=== PATIENT | male | born 1945 | race Caucasian/White ===

== ENCOUNTER → 2021-10-24 | Outpatient (CLI) | payer OTHER, MEDICAID ==
[~2021-10-24] MED LIST: ATEN50TA2 PO; FISH500C PO; GEMF600T5 PO; HYDR-2541 PO; MULT1TAB9 PO
== END ==
LOC: M RAD 10:56
PROVIDERS: ATTEND Internal Medicine
DX: N18.9 Chronic kidney disease, unspecified (principal); N40.0 Benign prostatic hyperplasia without lower urinary tract symptoms; N28.1 Cyst of kidney, acquired; N32.3 Diverticulum of bladder

== ENCOUNTER → 2024-02-11 | Outpatient (CLI) | payer OTHER, MEDICAID | LOC: M RAD 11:05 | PROVIDERS: ATTEND Specialist | DX: N28.1 Cyst of kidney, acquired (principal); N32.3 Diverticulum of bladder ==

== ENCOUNTER → 2024-09-28 | Outpatient (CLI) | payer OTHER, MEDICAID ==
[~2024-09-28] MED LIST changes: +LIDOCAINE 1% MDV 20ML VIAL As Ordered ONE
[2024-09-28 10:20] VITALS: BP 142/97; TEMP 96.6; O2SAT 97
== END ==
LOC: M IRPRO 10:06
PROVIDERS: ATTEND Otolaryngology
DX: D37.030 Neoplasm of uncertain behavior of the parotid salivary glands (principal)

== ENCOUNTER 2024-11-04 11:56 | Inpatient (IN) | payer OTHER, MEDICAID ==
[~2024-11-04] VITALS: Ht 167.6 cm; Wt 90.9 kg
[~2024-11-04 11:56] MED LIST changes: -LIDOCAINE 1% MDV 20ML VIAL As Ordered ONE
[2024-11-04 12:55] LABS: BASO % 0.4 % (0.0-1.0); EOS # 0.1 10^3/uL (0.0-0.5); EOS % 0.5 % (0.0-3.0); HEMATOCRIT 41.2 % (42.0-52.0); HEMOGLOBIN 14.4 g/dl (13.5-17.5); LYMPH # 1.5 10^3/uL (1.5-5.0); LYMPH % 15.1 % (24.0-44.0); MEAN CORPUSCULAR VOLUME 88.8 fl (80.0-96.0); MONO # 0.8 10^3/uL (0.0-0.8); MONO % 8.4 % (2.0-8.0); NEUTROPHILS # 7.5 10^3/uL (1.5-8.5); NEUTROPHILS % 75.1 % (36.0-66.0); PLATELET COUNT, AUTOMATED 236 10^3/uL (150-450); RED BLOOD COUNT 4.64 10^6/uL (4.30-6.10)
[2024-11-04] MEDS ORDERED: LIDOCAINE 2% 5ML JELLY UROJET As Ordered ONE (13:08)
[2024-11-04] MEDS: LIDOCAINE 2% 5ML JELLY UROJET TOP ONE (13:12)
[2024-11-04 13:14] LABS: INR 1.02; PARTIAL THROMBOPLASTIN TIME 27.2 SECONDS (24.8-34.2); PROTHROMBIN TIME 13.7 SECONDS (12.5-14.5)
[2024-11-04 13:24] LABS: BILIRUBIN,DIRECT 0.4 MG/DL (<0.4); BILIRUBIN,TOTAL 1.2 MG/DL (0.3-1.2); CALCIUM LEVEL 9.5 MG/DL (8.3-10.6); CREATININE FOR GFR 1.28 MG/DL (0.70-1.30); GLOMERULAR FILTRATION RATE 57.9 (>42); POTASSIUM SERUM 4.1 MMOL/L (3.5-5.1); TOTAL PROTEIN 7.4 G/DL (5.7-8.2)
[2024-11-04] MEDS ORDERED: ISOVUE-370 76% 100ML VIAL As Ordered ONE (13:26)
[2024-11-04 13:38] LABS: KETONE, URINE AUTO RFX TRACE mg/dL (NEGATIVE); LEUKOCYTE ESTERASE UR AUTO RFX NEGATIVE (NEGATIVE); MUCUS, URINE RFX SMALL (NEGATIVE); NITRITE, URINE AUTO RFX NEGATIVE (NEGATIVE); RBC, URINE AUTO RFX 10 /HPF (0-3); SQUAM EPITHELIAL CELL UR AURFX 1 /HPF (0-6); WBC, URINE AUTO RFX 3 /HPF (0-3)
[2024-11-04] MEDS: ACETAMINOPHEN *IV* 1,000 MG in IV 1 EA IV ONE (14:31)
[2024-11-04] MEDS ORDERED: MORPHINE 2 MG/ML 1ML VIAL IV PRN (15:55)
[2024-11-04] MEDS ORDERED: LISI2.5T9 PO (17:50)
[2024-11-04] MEDS ORDERED: THERTAB52 PO (17:50)
[2024-11-04] MEDS ORDERED: VASC1CAP2 PO (17:50)
[2024-11-04] MEDS ORDERED: METO1TAB33 PO (17:50)
[2024-11-04] MEDS ORDERED: HOME MED LIST COMPLETE! XX SCH (17:55)
[2024-11-04 19:30] LABS: VENOUS BASE EXCESS -3.8 (-2.0-2.0); VENOUS HCO3 21.2 MMOL/L (23.0-27.0); VENOUS O2 SATURATION 86.2 % (60.0-80.0); VENOUS PARTIAL PRESSURE CO2 38.4 mmHg (38.0-50.0); VENOUS PARTIAL PRESSURE O2 52.1 mmHg (30.0-50.0); VENOUS PH 7.359 UNITS (7.330-7.430); VENOUS STANDARD HCO3 21.1 MMOL/L; VENOUS TOTAL CO2 22.3 MMOL/L (24.0-28.0)
[2024-11-04 19:33] LABS: HEMATOCRIT 45.8 % (42.0-52.0); HEMOGLOBIN 15.5 g/dl (13.5-17.5); MEAN CORPUSCULAR HEMOGLOBIN 30.3 pg (27.0-33.0); MEAN CORPUSCULAR HGB CONC 33.8 g/dl (32.0-36.5); MEAN CORPUSCULAR VOLUME 89.6 fl (80.0-96.0); PLATELET COUNT, AUTOMATED 227 10^3/uL (150-450); RED BLOOD COUNT 5.11 10^6/uL (4.30-6.10); WHITE BLOOD COUNT 10.3 10^3/uL (4.0-10.0)
[2024-11-04 20:02] LABS: C REACTIVE PROTEIN QUANTITATIV 0.69 MG/DL (<1.0); CHOLESTEROL RISK RATIO 4.67 (<5); HDL CHOLESTEROL 45.1 MG/DL (>40); HEMOGLOBIN A1c 5.3 % (4.0-6.0); LDL CHOLESTEROL 146.1 MG/DL (<100); NON-HDL-C 165.9 MG/DL
[2024-11-04 20:08] LABS: PROCALCITONIN 0.08 ng/ml
[2024-11-04] MEDS: METOPROLOL SUCC (TopROL XL) 100MG *XL* TAB PO SCH (20:39)
[2024-11-04] MEDS: ASPIRIN 81MG CHEW TABLET PO ONE (20:40)
[2024-11-04 22:04] VITALS: TEMP 98.6; O2SAT 98
[2024-11-05 00:54] LABS: HEMOGLOBIN 14.7 g/dl (13.5-17.5); MEAN CORPUSCULAR HEMOGLOBIN 30.9 pg (27.0-33.0); MEAN CORPUSCULAR VOLUME 88.4 fl (80.0-96.0); PLATELET COUNT, AUTOMATED 236 10^3/uL (150-450); RED BLOOD COUNT 4.75 10^6/uL (4.30-6.10); WHITE BLOOD COUNT 9.7 10^3/uL (4.0-10.0)
[2024-11-05 03:00] VITALS: BP 154/81; TEMP 98.4; O2SAT 92
[2024-11-05 06:07] LABS: HEMATOCRIT 42.7 % (42.0-52.0); HEMOGLOBIN 14.8 g/dl (13.5-17.5); MEAN CORPUSCULAR HEMOGLOBIN 30.4 pg (27.0-33.0); MEAN CORPUSCULAR HGB CONC 34.7 g/dl (32.0-36.5); MEAN CORPUSCULAR VOLUME 87.7 fl (80.0-96.0); PLATELET COUNT, AUTOMATED 241 10^3/uL (150-450); RED BLOOD COUNT 4.87 10^6/uL (4.30-6.10); WHITE BLOOD COUNT 9.7 10^3/uL (4.0-10.0)
[2024-11-05 06:31] LABS: ALBUMIN 3.8 G/DL (3.2-5.2); ALKALINE PHOSPHATASE 59 U/L (40-129); ALT/SGPT 44 U/L (7.0-40); AST/SGOT 61 U/L (<34); BILIRUBIN,TOTAL 1.2 MG/DL (0.3-1.2); BLOOD UREA NITROGEN 23 MG/DL (9-23); CALCIUM LEVEL 9.4 MG/DL (8.3-10.6); CARBON DIOXIDE LEVEL 22 MMOL/L (20-31); CHLORIDE LEVEL 97 MMOL/L (98-107); CREATININE FOR GFR 1.21 MG/DL (0.70-1.30); GLOMERULAR FILTRATION RATE > 60.0 (>42); GLUCOSE, FASTING 105 MG/DL (74-106); MAGNESIUM LEVEL 2.1 MG/DL (1.8-2.4); POTASSIUM SERUM 4.2 MMOL/L (3.5-5.1); SODIUM LEVEL 134 MMOL/L (136-145); TOTAL PROTEIN 7.3 G/DL (5.7-8.2)
[2024-11-05 08:07] VITALS: BP 145/82; TEMP 97.7; O2SAT 90
[2024-11-05] MEDS: LISINOPRIL *2.5 MG* TAB PO SCH (08:18)
[2024-11-05] MEDS: ASPIRIN 81MG CHEW TABLET PO SCH (08:19)
[2024-11-05] MEDS: ATORVASTATIN 20 MG TAB PO SCH (08:19)
[2024-11-05] MEDS: ENOXAPARIN 40MG/0.4ML SYRINGE (J1650 PER 10MG) SC SCH (08:19)
[2024-11-05] MEDS: NYSTATIN 100,000 UNITS/GM TOPICAL PWD 15GM TOP SCH (09:00)
[2024-11-05 10:04] LABS: THYROID STIMULATING HORMONE 0.701 uIU/ML (0.55-4.78)
[2024-11-05 10:05] LABS: FREE T4 1.26 NG/DL (0.89-1.76); THYROID PEROXIDASE ANTIBODY < 28.0 U/ML (<60.0)
[2024-11-05] MEDS: methylPREDNISolone 125MG 2ML VIAL IV SCH (10:59)
[2024-11-05 11:59] VITALS: BP 128/77; TEMP 98.1; O2SAT 97
[2024-11-05] MEDS ORDERED: PROHANCE 279.3MG/ML 5ML VIAL As Ordered ONE (12:46)
[2024-11-05] MEDS ORDERED: PROHANCE 279.3MG/ML 15ML VIAL As Ordered ONE (12:46)
[2024-11-05 15:21] LABS: HEMATOCRIT 42.3 % (42.0-52.0); HEMOGLOBIN 14.8 g/dl (13.5-17.5); MEAN CORPUSCULAR HEMOGLOBIN 30.9 pg (27.0-33.0); MEAN CORPUSCULAR VOLUME 88.3 fl (80.0-96.0); PLATELET COUNT, AUTOMATED 245 10^3/uL (150-450); RED BLOOD COUNT 4.79 10^6/uL (4.30-6.10); WHITE BLOOD COUNT 9.2 10^3/uL (4.0-10.0)
[2024-11-05 15:34] LABS: ERYTHROCYTE SEDIMENTATION RATE 36 mm/hr (0-20)
[2024-11-05 20:00] VITALS: BP 114/71; TEMP 97.3; O2SAT 94
[2024-11-05] MEDS: QUEtiapine FUMARATE 25 MG TAB PO SCH (20:25)
[2024-11-05 20:50] LABS: HEMATOCRIT 40.4 % (42.0-52.0); MEAN CORPUSCULAR HEMOGLOBIN 30.4 pg (27.0-33.0); MEAN CORPUSCULAR HGB CONC 34.7 g/dl (32.0-36.5); MEAN CORPUSCULAR VOLUME 87.6 fl (80.0-96.0); PLATELET COUNT, AUTOMATED 252 10^3/uL (150-450); RED BLOOD COUNT 4.61 10^6/uL (4.30-6.10); WHITE BLOOD COUNT 6.9 10^3/uL (4.0-10.0)
[2024-11-06 00:54] LABS: HEMATOCRIT 39.8 % (42.0-52.0); HEMOGLOBIN 13.6 g/dl (13.5-17.5); MEAN CORPUSCULAR HEMOGLOBIN 30.2 pg (27.0-33.0); MEAN CORPUSCULAR HGB CONC 34.2 g/dl (32.0-36.5); MEAN CORPUSCULAR VOLUME 88.4 fl (80.0-96.0); PLATELET COUNT, AUTOMATED 253 10^3/uL (150-450)
[2024-11-06 04:06] VITALS: BP 107/64; TEMP 97.7; O2SAT 95
[2024-11-06] MEDS: NS 500 ML IV ONE (05:03)
[2024-11-06 06:01] VITALS: BP 124/66
[2024-11-06 06:31] LABS: HEMATOCRIT 40.6 % (42.0-52.0); MEAN CORPUSCULAR HEMOGLOBIN 31.1 pg (27.0-33.0); MEAN CORPUSCULAR HGB CONC 34.5 g/dl (32.0-36.5); MEAN CORPUSCULAR VOLUME 90.2 fl (80.0-96.0); PLATELET COUNT, AUTOMATED 239 10^3/uL (150-450); WHITE BLOOD COUNT 11.4 10^3/uL (4.0-10.0)
[2024-11-06 07:06] LABS: ALBUMIN 3.5 G/DL (3.2-5.2); BILIRUBIN,TOTAL 0.9 MG/DL (0.3-1.2); CALCIUM LEVEL 9.3 MG/DL (8.3-10.6); CREATININE FOR GFR 1.74 MG/DL (0.70-1.30); GLOMERULAR FILTRATION RATE 40.6 (>42); MAGNESIUM LEVEL 2.2 MG/DL (1.8-2.4); POTASSIUM SERUM 4.7 MMOL/L (3.5-5.1); TOTAL PROTEIN 6.7 G/DL (5.7-8.2)
[2024-11-06] MEDS: FLUBLOK(EGGFREE) TRIVAL(24-25) VACCINE PF 0.5ML SYRINGE 18YRS & OLDER IM.IMMUN ONE (07:42)
[2024-11-06] MEDS: LR 1,000 ML IV ONE (08:07)
[2024-11-06 10:09] LABS: APPEARANCE, CSF CLEAR (CLEAR); COLOR, CSF COLORLESS (COLORLESS); CSF TUBE# CELL CNT TUBE 1
[2024-11-06 10:10] LABS: APPEARANCE, CSF CLEAR (CLEAR); COLOR, CSF COLORLESS (COLORLESS); CSF TUBE# CELL CNT TUBE 4
[2024-11-06 10:55] LABS: CSF TUBE# TP TUBE 2; TOTAL PROTEIN,CSF 106.2 MG/DL (15-45)
[2024-11-06 10:58] LABS: CSF TUBE# GLU TUBE 2
[2024-11-06 11:55] VITALS: BP 140/77; TEMP 97.7; O2SAT 92; O2SAT 95
[2024-11-06 13:07] LABS: HEMATOCRIT 43.3 % (42.0-52.0); HEMOGLOBIN 14.6 g/dl (13.5-17.5); MEAN CORPUSCULAR HEMOGLOBIN 30.1 pg (27.0-33.0); MEAN CORPUSCULAR HGB CONC 33.7 g/dl (32.0-36.5); MEAN CORPUSCULAR VOLUME 89.3 fl (80.0-96.0); PLATELET COUNT, AUTOMATED 243 10^3/uL (150-450); RED BLOOD COUNT 4.85 10^6/uL (4.30-6.10); WHITE BLOOD COUNT 15.5 10^3/uL (4.0-10.0)
[2024-11-06] MEDS: TAMSULOSIN 0.4 MG CAP PO SCH (14:41)
[2024-11-06] MEDS: HEPARIN SOD (PORCINE) 5000UNITS/ML 1ML VIAL/SYRINGE SQ SCH (14:41)
[2024-11-06] MEDS: MIRALAX *UNIT DOSE* 17GM PACKET PO SCH (14:42)
[2024-11-06] MEDS: METAMUCIL (PSYLLIUM) PACKET PO SCH (14:42)
[2024-11-06 20:22] VITALS: BP 136/73; TEMP 98.8; O2SAT 94
[2024-11-06] MEDS: ACETAMINOPHEN 325 MG TAB PO PRN (21:08)
[2024-11-07 04:01] VITALS: BP 153/88; TEMP 98.4; O2SAT 98
[2024-11-07 07:11] LABS: HEMATOCRIT 41.6 % (42.0-52.0); HEMOGLOBIN 14.2 g/dl (13.5-17.5); MEAN CORPUSCULAR HEMOGLOBIN 30.2 pg (27.0-33.0); MEAN CORPUSCULAR HGB CONC 34.1 g/dl (32.0-36.5); MEAN CORPUSCULAR VOLUME 88.5 fl (80.0-96.0); PLATELET COUNT, AUTOMATED 216 10^3/uL (150-450); WHITE BLOOD COUNT 9.6 10^3/uL (4.0-10.0)
[2024-11-07 07:32] LABS: ALBUMIN 3.7 G/DL (3.2-5.2); BILIRUBIN,TOTAL 0.8 MG/DL (0.3-1.2); CALCIUM LEVEL 8.9 MG/DL (8.3-10.6); CREATININE FOR GFR 1.36 MG/DL (0.70-1.30); POTASSIUM SERUM 4.3 MMOL/L (3.5-5.1); TOTAL PROTEIN 6.9 G/DL (5.7-8.2)
[2024-11-07] MEDS ORDERED: methylPREDNISolone 125MG 2ML VIAL IV ONE (09:05)
[2024-11-07] MEDS: methylPREDNISolone 125MG 2ML VIAL IV SCH (09:22)
[2024-11-07 12:00] VITALS: BP 148/82; TEMP 97.9; O2SAT 93
[2024-11-07 20:19] VITALS: BP 121/71; TEMP 97.9; O2SAT 91
[2024-11-08 04:29] VITALS: BP 143/72; TEMP 98.4; O2SAT 92
[2024-11-08 07:21] LABS: HEMATOCRIT 41.5 % (42.0-52.0); HEMOGLOBIN 14.5 g/dl (13.5-17.5); MEAN CORPUSCULAR HGB CONC 34.9 g/dl (32.0-36.5); MEAN CORPUSCULAR VOLUME 88.9 fl (80.0-96.0); PLATELET COUNT, AUTOMATED 240 10^3/uL (150-450); RED BLOOD COUNT 4.67 10^6/uL (4.30-6.10); WHITE BLOOD COUNT 11.6 10^3/uL (4.0-10.0)
[2024-11-08 07:53] LABS: ALBUMIN 3.6 G/DL (3.2-5.2); BILIRUBIN,TOTAL 0.8 MG/DL (0.3-1.2); CALCIUM LEVEL 9.2 MG/DL (8.3-10.6); CREATININE FOR GFR 1.39 MG/DL (0.70-1.30); GLOMERULAR FILTRATION RATE 52.6 (>42); MAGNESIUM LEVEL 2.2 MG/DL (1.8-2.4); POTASSIUM SERUM 4.7 MMOL/L (3.5-5.1); TOTAL PROTEIN 6.9 G/DL (5.7-8.2)
[2024-11-08] MEDS ORDERED: BISACODYL 10MG SUPP PR PRN (10:35)
[2024-11-08] MEDS: SENOKOT S TAB PO SCH (11:30)
[2024-11-08 12:00] VITALS: BP 116/78; TEMP 97.7; O2SAT 93
[2024-11-08 19:57] VITALS: BP 102/62; TEMP 98.2; O2SAT 91
[2024-11-09 04:28] VITALS: BP 135/77; TEMP 98.6; O2SAT 95
[2024-11-09 06:23] LABS: HEMATOCRIT 41.7 % (42.0-52.0); HEMOGLOBIN 14.4 g/dl (13.5-17.5); MEAN CORPUSCULAR HEMOGLOBIN 30.4 pg (27.0-33.0); MEAN CORPUSCULAR HGB CONC 34.5 g/dl (32.0-36.5); MEAN CORPUSCULAR VOLUME 88.2 fl (80.0-96.0); PLATELET COUNT, AUTOMATED 228 10^3/uL (150-450); RED BLOOD COUNT 4.73 10^6/uL (4.30-6.10); WHITE BLOOD COUNT 11.3 10^3/uL (4.0-10.0)
[2024-11-09 06:53] LABS: ALBUMIN 3.6 G/DL (3.2-5.2); BILIRUBIN,TOTAL 0.7 MG/DL (0.3-1.2); CALCIUM LEVEL 9.6 MG/DL (8.3-10.6); CREATININE FOR GFR 1.47 MG/DL (0.70-1.30); GLOMERULAR FILTRATION RATE 49.3 (>42); MAGNESIUM LEVEL 2.2 MG/DL (1.8-2.4); POTASSIUM SERUM 5.1 MMOL/L (3.5-5.1); TOTAL PROTEIN 6.9 G/DL (5.7-8.2)
[2024-11-09] MEDS ORDERED: VARIBAR NECTAR 40% w/v 240ML SUSP BTL As Ordered ONE (11:06)
[2024-11-09] MEDS ORDERED: VARIBAR PUDDING 40% w/v 230ML TUBE As Ordered ONE (11:06)
[2024-11-09] MEDS ORDERED: E-Z-PAQUE 96% w/w SUSP 176GM BTL As Ordered ONE (11:06)
[2024-11-09] MEDS ORDERED: BARIUM SULFATE 700 MG TABLET (E-Z-DISK) As Ordered ONE (11:06)
[2024-11-09 12:00] VITALS: BP 104/65; TEMP 97.5; O2SAT 96
[2024-11-09 16:57] LABS: LYME TOTAL ANTIBODY CIA <= 0.90 Index (<=0.90)
[2024-11-09 20:05] VITALS: BP 125/70; TEMP 98.4; O2SAT 94
[2024-11-10 00:37] LABS: VITAMIN E(ALPHA TOCOPHEROL) 15.7 mg/L (5.7-19.9); VITAMIN E(GAMMA TOCOPHEROL) < 1.0 mg/L (<=4.3)
[2024-11-10 04:01] VITALS: BP 136/70; TEMP 97.7; O2SAT 95
[2024-11-10 06:46] LABS: HEMATOCRIT 43.1 % (42.0-52.0); MEAN CORPUSCULAR HEMOGLOBIN 30.6 pg (27.0-33.0); MEAN CORPUSCULAR HGB CONC 34.8 g/dl (32.0-36.5); PLATELET COUNT, AUTOMATED 231 10^3/uL (150-450); WHITE BLOOD COUNT 12.8 10^3/uL (4.0-10.0)
[2024-11-10 07:22] LABS: ALBUMIN 3.6 G/DL (3.2-5.2); BILIRUBIN,TOTAL 0.8 MG/DL (0.3-1.2); CALCIUM LEVEL 9.6 MG/DL (8.3-10.6); CREATININE FOR GFR 1.35 MG/DL (0.70-1.30); GLOMERULAR FILTRATION RATE 54.4 (>42); MAGNESIUM LEVEL 2.2 MG/DL (1.8-2.4); TOTAL PROTEIN 6.9 G/DL (5.7-8.2)
[2024-11-10 12:00] VITALS: BP 128/80; TEMP 97.7; O2SAT 93
[2024-11-10 15:13] LABS: Anaplasma phagocytophilum NOT DETECTED (NOT DETECT); Babesia microti NOT DETECTED (NOT DETECT)
[2024-11-10 15:48] LABS: BORRELIA SPECIES DNA NOT DETECTED (NOT DETECT)
[2024-11-10 20:00] VITALS: BP 118/79; TEMP 97.7; O2SAT 95
[2024-11-11 01:52] LABS: Ehrlichia chaffeensis NOT DETECTED (NOT DETECT)
[2024-11-11 04:00] VITALS: BP 145/85; TEMP 97.7; O2SAT 97
[2024-11-11 06:04] LABS: HEMATOCRIT 43.2 % (42.0-52.0); MEAN CORPUSCULAR HEMOGLOBIN 30.8 pg (27.0-33.0); MEAN CORPUSCULAR HGB CONC 34.7 g/dl (32.0-36.5); MEAN CORPUSCULAR VOLUME 88.7 fl (80.0-96.0); PLATELET COUNT, AUTOMATED 241 10^3/uL (150-450); RED BLOOD COUNT 4.87 10^6/uL (4.30-6.10); WHITE BLOOD COUNT 13.6 10^3/uL (4.0-10.0)
[2024-11-11 06:26] LABS: ALBUMIN 3.5 G/DL (3.2-5.2); BILIRUBIN,TOTAL 0.8 MG/DL (0.3-1.2); CALCIUM LEVEL 9.7 MG/DL (8.3-10.6); CREATININE FOR GFR 1.33 MG/DL (0.70-1.30); GLOMERULAR FILTRATION RATE 55.4 (>42); MAGNESIUM LEVEL 2.1 MG/DL (1.8-2.4); POTASSIUM SERUM 5.1 MMOL/L (3.5-5.1); TOTAL PROTEIN 6.7 G/DL (5.7-8.2)
[2024-11-11 11:35] VITALS: BP 100/61; TEMP 97.5; O2SAT 94
[2024-11-12 04:41] VITALS: BP 130/74; TEMP 97.9; O2SAT 95
[2024-11-12 06:39] LABS: HEMATOCRIT 43.1 % (42.0-52.0); HEMOGLOBIN 15.1 g/dl (13.5-17.5); MEAN CORPUSCULAR HEMOGLOBIN 30.9 pg (27.0-33.0); MEAN CORPUSCULAR VOLUME 88.1 fl (80.0-96.0); PLATELET COUNT, AUTOMATED 238 10^3/uL (150-450); RED BLOOD COUNT 4.89 10^6/uL (4.30-6.10)
[2024-11-12] MEDS: LR 1,000 ML IV ONE (09:22)
[2024-11-12 11:42] LABS: VITAMIN B1 LEVEL WHOLE BLOOD 156 nmol/L (78-185)
[2024-11-12 20:10] VITALS: BP 107/72
[2024-11-13 04:06] VITALS: BP 111/73; TEMP 98.1; O2SAT 97
[2024-11-14 04:39] VITALS: BP 147/82; TEMP 97.9; O2SAT 95
[2024-11-15 04:32] VITALS: BP 133/84; TEMP 97.9; O2SAT 95
[2024-11-15 23:16] VITALS: BP 124/63
[2024-11-16 03:52] VITALS: BP 122/72; TEMP 97.9; O2SAT 93
[2024-11-17 05:06] VITALS: BP 115/73; TEMP 98.8; O2SAT 99
[2024-11-17 15:28] VITALS: BP 126/76; TEMP 98.4; O2SAT 97
[2024-11-17] MEDS: predniSONE 20 MG TAB PO SCH (15:44)
[2024-11-17] MEDS: diphenhydrAMINE 50MG/ML VIAL IM ONE (15:45)
[2024-11-18 03:32] VITALS: BP 108/71; TEMP 97.9; O2SAT 95
[2024-11-18] MEDS ORDERED: RAMELTEON 8 MG TAB (ROZEREM) PO PRN (17:55)
[2024-11-18] MEDS ORDERED: DOXYCYCLINE HYCLATE 100MG TABLET PO SCH (21:00)
[2024-11-18] MEDS ORDERED: CEPHALEXIN 500 MG CAP PO SCH (21:00)
[2024-11-18] MEDS: predniSONE 20 MG TAB PO SCH (22:09)
[2024-11-19 05:25] VITALS: BP 118/73; TEMP 97.9; O2SAT 93
[2024-11-19 08:56] LABS: BASO % 0.2 % (0.0-1.0); EOS % 0.2 % (0.0-3.0); HEMATOCRIT 43.5 % (42.0-52.0); LYMPH # 0.7 10^3/uL (1.5-5.0); LYMPH % 5.4 % (24.0-44.0); MEAN CORPUSCULAR HEMOGLOBIN 30.9 pg (27.0-33.0); MEAN CORPUSCULAR HGB CONC 34.5 g/dl (32.0-36.5); MEAN CORPUSCULAR VOLUME 89.5 fl (80.0-96.0); MONO # 0.3 10^3/uL (0.0-0.8); MONO % 2.8 % (2.0-8.0); NEUTROPHILS % 90.6 % (36.0-66.0); PLATELET COUNT, AUTOMATED 154 10^3/uL (150-450); RED BLOOD COUNT 4.86 10^6/uL (4.30-6.10); WHITE BLOOD COUNT 12.1 10^3/uL (4.0-10.0)
[2024-11-19 09:30] LABS: ALBUMIN 2.9 G/DL (3.2-5.2); BILIRUBIN,TOTAL 0.9 MG/DL (0.3-1.2); CALCIUM LEVEL 9.1 MG/DL (8.3-10.6); CREATININE FOR GFR 1.28 MG/DL (0.70-1.30); GLOMERULAR FILTRATION RATE 57.9 (>42); POTASSIUM SERUM 4.9 MMOL/L (3.5-5.1); TOTAL PROTEIN 6.1 G/DL (5.7-8.2)
[2024-11-19 20:50] VITALS: BP 120/71; TEMP 97.7; O2SAT 93
[2024-11-20 04:00] VITALS: BP 141/80; TEMP 98.1; O2SAT 90
[2024-11-20] MEDS: FLUCONAZOLE 100 MG TAB PO SCH (15:00)
[2024-11-20] MEDS: CLOTRIMAZOLE 1% TOPICAL CREAM 30GM TOP SCH (15:02)
[2024-11-21 04:16] VITALS: BP 136/80; TEMP 97.7; O2SAT 96
[2024-11-21 05:13] LABS: BILIRUBIN,DIRECT 0.3 MG/DL (<0.4); BILIRUBIN,TOTAL 0.9 MG/DL (0.3-1.2); TOTAL PROTEIN 5.9 G/DL (5.7-8.2)
[2024-11-21] MEDS: predniSONE 10MG TAB PO SCH (08:22)
[2024-11-22 04:00] VITALS: BP 134/79; TEMP 97.9; O2SAT 97
[2024-11-22 07:37] LABS: ALBUMIN 3.1 G/DL (3.2-5.2); BILIRUBIN,DIRECT 0.3 MG/DL (<0.4); BILIRUBIN,TOTAL 0.9 MG/DL (0.3-1.2)
[2024-11-23 03:42] VITALS: BP 127/76; TEMP 97.9; O2SAT 96
[2024-11-23 05:45] LABS: ALBUMIN 3.1 G/DL (3.2-5.2); BILIRUBIN,DIRECT 0.4 MG/DL (<0.4); TOTAL PROTEIN 6.1 G/DL (5.7-8.2)
[2024-11-23 20:53] VITALS: BP 108/60
[2024-11-24 04:00] VITALS: BP 124/75; TEMP 97.9; O2SAT 94
[2024-11-24 06:08] LABS: ALBUMIN 3.1 G/DL (3.2-5.2); BILIRUBIN,DIRECT 0.4 MG/DL (<0.4); BILIRUBIN,TOTAL 1.1 MG/DL (0.3-1.2); TOTAL PROTEIN 6.1 G/DL (5.7-8.2)
[2024-11-24] MEDS ORDERED: NYST10006 TOP (14:17)
[2024-11-24] MEDS ORDERED: ATOR1TAB21 PO (14:17)
[2024-11-24] MEDS ORDERED: FLUC100T3 PO (14:17)
[2024-11-24] MEDS ORDERED: CLOTR1CR TOP (14:17)
[2024-11-24] MEDS ORDERED: FLOM0.4C39 PO (14:17)
[2024-11-24] MEDS ORDERED: PRED10TA2 PO (14:17)
== END 2024-11-24 16:35 | disposition home health service (06) | DRG 97 ==
LOC: M ED 11:56 → M ED INP 18:37 → M MSPAV 21:00
PROVIDERS: ADMIT Student in an Organized Health Care Education/Training Program; ATTEND Student in an Organized Health Care Education/Training Program
PROC: B246ZZZ Ultrasonography of Right and Left Heart (ICD-10-PCS; principal; 2024-11-06)
PROC: 009U3ZX Drainage of Spinal Canal, Percutaneous Approach, Diagnostic (ICD-10-PCS; 2024-11-06)
DX: A86 Unspecified viral encephalitis (principal); G93.41 Metabolic encephalopathy; N17.9 Acute kidney failure, unspecified; R47.01 Aphasia; I10 Essential (primary) hypertension; E78.5 Hyperlipidemia, unspecified; M10.9 Gout, unspecified; N40.1 Benign prostatic hyperplasia with lower urinary tract symptoms; R33.9 Retention of urine, unspecified; M25.571 Pain in right ankle and joints of right foot; M25.572 Pain in left ankle and joints of left foot; R29.6 Repeated falls; R26.89 Other abnormalities of gait and mobility; R21 Rash and other nonspecific skin eruption; Z79.899 Other long term (current) drug therapy; Z88.2 Allergy status to sulfonamides